=== PATIENT | female | born 1955 | race Caucasian/White ===

== ENCOUNTER 2017-05-30 13:00 | Observation (INO) | payer SELFPAY ==
[2017-05-30] MEDS ORDERED: Aspirin 325 MG TAB ONE (13:31)
[2017-05-30] MEDS ORDERED: Nitroglycerin 2% Ointment 1 INCH/1 GM Packet ONE (13:31)
--- NOTE | 2017-05-30 13:55 | RAD ---
CHEST 1 VIEW: Date: 05/30/17 HISTORY: Chest pain. FINDINGS: Cardiac silhouette and pulmonary vasculature are unremarkable. Mediastinum is midline. No lobar conso lidation or evidence of pneumothorax. IMPRESSION: No active cardiopulmonary abnormalities are demonstrated. POS: DAVIH
[2017-05-30 13:57] LABS: #Eosinphils 0.1 thou/uL (0.0-0.7); #Lymphocytes 3.2 thou/uL (1.20-3.40); #Monocytes 0.4 thou/uL (0.11-0.59); #Neutrophils 6.6 thou/uL (1.40-6.50); %Basophils 0.2 % (0.0-1.0); %Lymphocytes 30.6 % (21.0-51.0); %Neutrophils 64.2 % (42.0-75.0); Hemoglobin 14.9 g/dL (12.0-16.0); Mean Corpuscular HGB CONC 33.7 g/dL (32.0-36.0); Mean Corpuscular Hemoglobin 29.3 pg (27.0-31.0); Mean Corpuscular Volume 86.8 fl (81.0-99.0); Mean Platelet Volume 7.2 fL (7.4-10.4); Platelet Count 223 thou/uL (130-400); RBC Distribution Width 12.5 % (11.5-14.5); Red Blood Cell (RBC) Count 5.09 mill/uL (4.20-5.40); White Blood Cell (WBC) Count 10.3 thou/uL (4.8-10.8)
[2017-05-30 14:21] LABS: ALT (SGPT) 27 U/L (8-55); AST (SGOT) 25 U/L (5-34); Alkaline Phosphatase 96 U/L (40-150); Anion Gap 14 mmol/L (10-20); BUN (Urea Nitrogen) 23 mg/dL (9.8-20.1); Bilirubin, Total 0.4 mg/dL (0.2-1.2); CK (CPK) 40 U/L (29-168); Calc. Creatinine Clearance 0 mL/min (70-130); Calcium 10.2 mg/dL (7.8-10.44); Carbon Dioxide 27 mmol/L (22-29); Chloride 102 mmol/L (98-107); Estimated GFR-MDRD 79; Globulin 4.1 g/dL (2.4-3.5); Glucose 79 mg/dL (70-105); Lipase 30 U/L (8-78); Potassium 4.1 mmol/L (3.5-5.1); Protein, Total 8.1 g/dL (6.0-8.3); Sodium 139 mmol/L (136-145)
[2017-05-30 14:25] LABS: CKMB 0.9 ng/mL (0-6.6); Troponin I Less than 0.010 ng/mL (< 0.028)
[2017-05-30] MEDS ORDERED: Dextrose 5% in Water 1,000 ML IV PRN (15:24)
[2017-05-30] MEDS ORDERED: Bisacodyl 5 MG TAB PO PRN (15:24)
[2017-05-30] MEDS ORDERED: Dextrose 50% Abboject 50 ML SYRINGE SLOW IVP PRN (15:24)
[2017-05-30] MEDS ORDERED: Nitroglycerin 0.4 MG TAB (25 Tab Bottle) PO PRN (15:24)
[2017-05-30] MEDS ORDERED: Acetaminophen 325 MG TAB PO PRN (15:24)
[2017-05-30] MEDS ORDERED: HumaLOG 300 UNITS/3 ML VIAL SC PRN (15:24)
[2017-05-30] MEDS ORDERED: Acetaminophen 650 MG Suppository PR PRN (15:24)
[2017-05-30 16:08] VITALS: BMI 39.6
--- NOTE | 2017-05-30 16:19 | HP ---
PRIMARY CARE PROVIDER: Jn Castillo. CHIEF COMPLAINT: Chest pain. HISTORY OF PRESENT ILLNESS: Ms. Kyle is a pleasant 61-year-old lady who was seen at [facility] on 05/30/2017. She works at a gas station. She went to use the washroom around noon today. She reports having a lo ose stool. Following that, she left the washroom and started walking back towards her station. She felt chest pain. She describes it as pain over the left side of her chest, initially sharp, subseque ntly dull, like somebody sitting on her chest. It was nonradiating. It was 8/10 at its worst. It w as accompanied by shortness of breath and nausea, but not by diaphoresis. She denies any cough, feve rs, or chills. She was driven to the emergency room by her daughter. By the time she reached the emergency room, he r pain had resolved. She estimates that it lasted about 20 minutes. In the emergency room, she rece ived aspirin and nitro paste. She reports that she is currently pain free. REVIEW OF SYSTEMS: The following complete review of systems was negative, unless otherwise mentioned in the HPI or below: Constitutional: Weight loss or gain, ability to conduct usual activities. Sk in: Rash, itching. Eyes: Double vision, pain. ENT/Mouth: Nose bleeding, neck stiffness, pain, te nderness. Cardiovascular: Palpitations, dyspnea on exertion, orthopnea. Respiratory: Shortness of breath, wheezing, cough, hemoptysis, fever or night sweats. Gastrointestinal: Poor appetite, abdom inal pain, heartburn, nausea, vomiting, constipation, or diarrhea. Genitourinary: Urgency, frequenc y, dysuria, nocturia. Musculoskeletal: Pain, swelling. Neurologic/Psychiatric: Anxiety, depression. Allergy/Immunologic : Skin rash, bleeding tendency. PAST MEDICAL HISTORY: Significant for hypertension and diabetes mellitus type 2. PAST SURGICAL HISTORY: Carpal tunnel surgery, hysterectomy, and tubal ligation. SOCIAL HISTORY: The patient denies tobacco use, alcohol use, or recreational drug use. ALLERGIES: No known drug allergies. CURRENT MEDICATIONS: Gabapentin 300 mg daily, lisinopril 20 mg daily, metformin 1000 mg 2 times a da y, multivitamins 1 tablet daily, simvastatin 20 mg daily, glimepiride 4 mg daily, magnesium 250 mg 2 times a day, omega-3 fish oil 2 capsules daily, vitamin D3 2000 units in the morning and 5000 units i n the evening, furosemide 20 mg daily, Levemir 20 units 2 times a day. FAMILY HISTORY: Significant for heart disease in both her parents. PHYSICAL EXAMINATION: GENERAL: Ms. Kyle is awake and alert, not in acute distress. VITAL SIGNS: She is afebrile. Blood pressure is 126/67 and pulse is 83. She is breathing at rate o f 21 and saturating 97% on room air. EYES: No scleral icterus. No conjunctival pallor. ENT: Moist mucosal membranes, no oropharyngeal, erythema, or exudates. NECK: Supple, nontender, normal range of movement, trachea is midline. RESPIRATORY: Accessory muscles of breathing are not active. Chest wall movements are symmetric bila terally. LUNGS: Clear to auscultation without wheeze, rhonchi, or crepitations. CARDIOVASCULAR: S1 and S2 are heard, regular. Peripheral pulses palpable. No carotid bruit, no per icardial rub. ABDOMEN: Soft, nontender, bowel sounds heard, no hepatomegaly, no splenomegaly. NEUROLOGIC: Cranial nerves II through XII are intact, deep tendon reflexes 2+. MUSCULOSKELETAL: Power is 5/5 in all 4 extremities. Normal range of movement at all major extremity joints. SKIN: No rashes or subcutaneous nodules. LYMPHATIC: No cervical lymphadenopathy. PSYCHIATRIC: Normal mood, normal affect. The patient is oriented to person, place, and time. LABORATORY DATA: Ms. Kyle's labs and investigations were reviewed. I reviewed her electrocardio gram, which shows normal sinus rhythm, no ST changes to suggest an acute coronary syndrome. I also r eviewed her chest x-ray, which does not show any pulmonary infiltrates. She has an unremarkable CBC, mildly elevated blood urea nitrogen of 23 and otherwise unremarkable comprehensive metabolic profile . Lipase, troponin I, and BNP are normal. ASSESSMENT AND PLAN: Ms. Kyle is a pleasant 61-year-old lady who was seen at [facility] on 05/30/2017. Her problem list includes: 1. Chest pain: Etiology unclear at this time. She does report that it was worse with exertion. We will admit her to the hospital for telemetry monitoring and for stress test. We will give nitroglyc joy p.r.n. 2. Diabetes mellitus type 2: Start Accu-Cheks, insulin sliding scale. 3. Hypertension: Monitor vital signs, titrate antihypertensives as needed. 4. Dyslipidemia: Continue statin. LEVEL OF RISK: High. LEVEL OF COMPLEXITY: High. Many thanks for allowing me to participate in your patient's care. Please feel free to contact me wi th any questions or concerns.
[2017-05-30 17:11] LABS: Troponin I Less than 0.010 ng/mL (< 0.028)
[2017-05-30 20:08] LABS: Troponin I Less than 0.010 ng/mL (< 0.028)
[2017-05-31 04:25] LABS: #Basophils 0.1 thou/uL (0.0-0.2); #Eosinphils 0.1 thou/uL (0.0-0.7); #Lymphocytes 3.1 thou/uL (1.20-3.40); #Monocytes 0.5 thou/uL (0.11-0.59); #Neutrophils 6.3 thou/uL (1.40-6.50); %Basophils 0.5 % (0.0-1.0); %Eosinophils 1.2 % (0.0-10.0); %Lymphocytes 31.2 % (21.0-51.0); %Monocytes 4.7 % (0.0-10.0); %Neutrophils 62.3 % (42.0-75.0); Hemoglobin 13.9 g/dL (12.0-16.0); Mean Corpuscular HGB CONC 34.5 g/dL (32.0-36.0); Mean Corpuscular Volume 86.9 fl (81.0-99.0); Mean Platelet Volume 6.9 fL (7.4-10.4); Platelet Count 191 thou/uL (130-400); RBC Distribution Width 12.3 % (11.5-14.5); Red Blood Cell (RBC) Count 4.63 mill/uL (4.20-5.40); White Blood Cell (WBC) Count 10.1 thou/uL (4.8-10.8)
[2017-05-31 04:40] LABS: Anion Gap 12 mmol/L (10-20); BUN (Urea Nitrogen) 22 mg/dL (9.8-20.1); Calc. Creatinine Clearance 131 mL/min (70-130); Calcium 9.7 mg/dL (7.8-10.44); Carbon Dioxide 29 mmol/L (22-29); Chloride 102 mmol/L (98-107); Estimated GFR-MDRD 84; Glucose 126 mg/dL (70-105); Potassium 4.2 mmol/L (3.5-5.1); Sodium 139 mmol/L (136-145)
[2017-05-31] MEDS ORDERED: Enoxaparin Sodium 40 MG/0.4 ML SYRINGE SC SCH (09:00)
[2017-05-31] MEDS ORDERED: Aspirin 325 MG TAB PO SCH (09:00)
--- NOTE | 2017-05-31 11:29 | NM ---
NUCLEAR MEDICINE CARDIAC PERFUSION EXAMINATION WITH EJECTION FRACTION: Comparison: None. History: 61-year-old female with chest pain. Technique: A stress only nuclear medicine cardiac perfusion examination was performed using 30.6 mCi Technetium 99M Sestamibi and Adenosine. FINDINGS: Tomographic images show no perfusion defects with stress. Gated images show normal wall motion with e jection fraction of 70%. JAIRON is 76 ml. LHR is 0.4 IMPRESSION: No perfusion defect seen with stress. POS: ADA
[2017-05-31 11:56] VITALS: BP 134/64; TEMP 97.7
[2017-05-31] MEDS ORDERED: ADENOSINE 60 MG/20 ML VIAL ONE (14:47)
--- NOTE | 2017-05-31 20:28 | DIS ---
PRIMARY CARE PROVIDER: Niels Larsen M.D. DATE OF ADMISSION: 05/30/2017 DATE OF DISCHARGE: 05/31/2017 DISCHARGE DIAGNOSIS: Chest pain. CONDITION OF PATIENT AT THE TIME OF DISCHARGE: Stable. I assessed Ms. Kyle on the day of discha rge. She denies any chest pain or shortness of breath. Vital signs are stable. S1 and S2 are heard , regular. Lungs are clear to auscultation bilaterally. DISCHARGE MEDICATIONS: No change was made to her preadmission home medications as listed on history and physical note from 05/30/2017. HOSPITAL COURSE: Ms. Kyle is a pleasant 61-year-old lady who was admitted to [facility] on 05/30/2017 for chest pain. Please refer to my history and physical note for furthe r information. She underwent a nuclear stress test on 05/31/2017. There was no perfusion defect see n with stress. Her left ventricle ejection fraction was 70%. She also had a normal D-dimer. Her chest pain resolved, and she is being discharged home in a stable condition. On the day of discharge, she has normal electrolytes, slightly elevated blood urea nitrogen of 22, no rmal creatinine, normal white count, normal hemoglobin, and normal platelet count. DISCHARGE DESTINATION: Home.
--- NOTE | 2017-06-01 10:31 | STRESS ---
Acquisition Time: 2017-05-31 09:05:57 Total Exercise Time: 00:04:00 Test Indications: CHEST PAIN Medications: Protocol: ADENOSINE Max HR: 098 BPM 61% of Pred: 160 BPM Max BP: 132/060 mmHG Max Work Load: 1.0 METS RESTING ECG: NORMAL SINUS RHYTHM AT 73 BPM WITH LEFT AXIS DEVIATION SYMPTOMS: SHORTNESS OF BREATH NORMAL BP RESPONSE ECTOPY: NONE ECG STRESS: NO SIGNIFICANT CHANGES INTERPRETATION: AWAIT NUCLEAR IMAGES FOR DEFINITIVE DIAGNOSIS Confirmed by VIKTOR DOYLE ([id number]), marketing editor WANG JORDAN ([id number]) on 06/01/2017 10:30:53 AM Referred By: MD Emerald MCCAIN Confirmed By:VIKTOR DOYLE
== END 2017-05-31 14:35 | disposition home or self-care (01) ==
LOC: ERS 13:00 → 2SW 16:01
PROVIDERS: ADMIT Internal Medicine; ATTEND Internal Medicine
DX: R07.9 Chest pain, unspecified (principal); I10 Essential (primary) hypertension; E11.9 Type 2 diabetes mellitus without complications; E78.5 Hyperlipidemia, unspecified; Z79.4 Long term (current) use of insulin; Z79.899 Other long term (current) drug therapy
CPT/HCPCS: 36415; 36416; 71045; 78452; 80048; 80053; 82553; 83690; 83880; 84484; 85025; 85379; 90471; 90732; 93005; 93017; 96360; 96372; A9500; G0009; G0378; J0153; J1650

== ENCOUNTER 2021-06-26 15:53 | Emergency (ER) | payer SELFPAY | END 2021-06-26 18:26 | disposition home or self-care (01) | LOC: ERS 15:53 | DX: B34.9 Viral infection, unspecified (principal); E11.9 Type 2 diabetes mellitus without complications; I10 Essential (primary) hypertension; E78.5 Hyperlipidemia, unspecified | CPT/HCPCS: 99283 ==

== ENCOUNTER 2021-09-11 09:38 | Outpatient (CLI) | payer MEDICARE | END 2021-09-11 09:39 | disposition home or self-care (01) | LOC: BICULT 09:38 | PROVIDERS: ATTEND Family Medicine | DX: Z12.31 Encounter for screening mammogram for malignant neoplasm of breast (principal); Z13.820 Encounter for screening for osteoporosis; Z78.0 Asymptomatic menopausal state; R10.13 Epigastric pain; K76.0 Fatty (change of) liver, not elsewhere classified; K86.2 Cyst of pancreas; Z91.89 Other specified personal risk factors, not elsewhere classified; Z80.3 Family history of malignant neoplasm of breast | CPT/HCPCS: 76705; 77063; 77067; 77080 ==

== ENCOUNTER 2021-09-26 09:37 | Outpatient (CLI) | payer MEDICARE ==
[2021-09-26] MEDS ORDERED: Iopamidol 370 76% 100 ML VIAL ONE (10:41)
== END 2021-09-26 09:38 | disposition home or self-care (01) ==
LOC: BICCT 09:37
PROVIDERS: ATTEND Family Medicine
DX: K86.2 Cyst of pancreas (principal)
CPT/HCPCS: 74178; 82565; Q9967

== ENCOUNTER 2021-12-22 10:11 | Outpatient (CLI) | payer MEDICARE | END 2021-12-22 10:12 | disposition home or self-care (01) | LOC: NM 10:11 | PROVIDERS: ATTEND Physician Assistant Medical | DX: R10.13 Epigastric pain (principal); K86.2 Cyst of pancreas | CPT/HCPCS: 78227; A9537 ==

== ENCOUNTER 2023-06-30 09:43 | Day surgery (SDC) | payer MEDICARE ==
[2023-06-24 09:22] VITALS: BMI 40.2
[2023-06-30] MEDS ORDERED: fentaNYL PF 100 MCG/2 ML SYRINGE ONE ×3 (12:11→14:31)
[2023-06-30] MEDS ORDERED: PROPOFOL 20 ML ONE (12:11)
[2023-06-30] MEDS ORDERED: Lidocaine 1% PF 5 ML VIAL ONE (12:11)
[2023-06-30] MEDS ORDERED: Ondansetron PF 4 MG/2 ML Vial ONE ×2 (12:13→13:31)
[2023-06-30] MEDS ORDERED: EPINEPHrine 1 MG/ML VIAL ONE (12:16)
[2023-06-30] MEDS ORDERED: Bupivacaine 0.25% HCL 30 ML VIAL ONE (12:16)
[2023-06-30] MEDS ORDERED: Indocyanine Green 25 MG/10 ML VIAL ONE (12:16)
[2023-06-30] MEDS ORDERED: Sodium Chloride 0.9% 100 ML ONE (12:25)
[2023-06-30] MEDS ORDERED: CEFAZOLIN 2 GM VIAL ONE (12:25)
[2023-06-30] MEDS ORDERED: Rocuronium Bromide 10 MG/ML (10ML VIAL) ONE (13:02)
[2023-06-30] MEDS ORDERED: PHENYLEPHRINE-NS 100 MCG/ML 10 ML SYRINGE ONE (13:15)
[2023-06-30] MEDS ORDERED: ePHEDrine Sulfate 50 MG/10 ML VIAL ONE (13:15)
[2023-06-30] MEDS ORDERED: SUGAMMADEX SODIUM 200 MG/2 ML VIAL ONE (13:33)
[2023-06-30] MEDS ORDERED: Promethazine HCl 25 MG/ML VIAL ONE ×2 (14:04→15:39)
== END 2023-06-30 16:41 | disposition home or self-care (01) ==
LOC: SDC 09:43
PROVIDERS: ATTEND Surgery
PROC: 0FT44ZZ Resection of Gallbladder, Percutaneous Endoscopic Approach (ICD-10-PCS; principal; 2023-06-30)
DX: K81.1 Chronic cholecystitis (principal); K82.8 Other specified diseases of gallbladder; I10 Essential (primary) hypertension; E11.9 Type 2 diabetes mellitus without complications; E78.00 Pure hypercholesterolemia, unspecified; Z90.710 Acquired absence of both cervix and uterus; Z79.84 Long term (current) use of oral hypoglycemic drugs; Z79.899 Other long term (current) drug therapy
CPT/HCPCS: 47562; 82962; C1889; J0171; 36416; 88304; J0665; J2405; J2550; J2704; J3490